=== PATIENT | male | born 1925 | race Caucasian/White ===

== ENCOUNTER 2017-03-17 11:16 | Emergency (ER) | payer MEDICARE, OTHER ==
[2017-03-17] MEDS ORDERED: Ondansetron HCl/PF 4 MG/2 ML Vial ONE (11:45)
[2017-03-17 11:52] LABS: #Basophils 0.1 thou/uL (0.0-0.2); #Eosinphils 0.2 thou/uL (0.0-0.7); #Lymphocytes 1.2 thou/uL (1.20-3.40); #Monocytes 0.7 thou/uL (0.11-0.59); #Neutrophils 8.4 thou/uL (1.40-6.50); %Basophils 0.7 % (0.0-1.0); %Eosinophils 1.4 % (0.0-10.0); %Lymphocytes 11.4 % (21.0-51.0); %Monocytes 6.6 % (0.0-10.0); %Neutrophils 79.9 % (42.0-75.0); Mean Corpuscular HGB CONC 33.6 g/dL (32.0-36.0); Mean Corpuscular Hemoglobin 31.3 pg (27.0-31.0); Mean Corpuscular Volume 93.3 fl (80.0-94.0); Mean Platelet Volume 6.6 fL (7.4-10.4); Platelet Count 194 thou/uL (130-400); RBC Distribution Width 12.4 % (11.5-14.5); Red Blood Cell (RBC) Count 3.84 mill/uL (4.70-6.10); White Blood Cell (WBC) Count 10.6 thou/uL (4.8-10.8)
[2017-03-17 12:06] LABS: Bilirubin Negative (Negative); Blood, Urine Trace (Negative); Clarity Slightly Cloudy (Clear); Glucose, Urine (Dipstick) 100 mg/dL (Negative); Leukocyte Large (Negative); Nitrite Positive (Negative); Protein, Urine (Dipstick) > or equal to 300 mg/dL (Neg-Trace); Urobilinogen 0.2 mg/dL (0.2-1.0); pH, Urine Greater/Equal 9.0 (5.0-9.0)
[2017-03-17 12:10] LABS: ALT (SGPT) 15 U/L (8-55); AST (SGOT) 24 U/L (5-34); Albumin 3.7 g/dL (3.4-4.8); Alkaline Phosphatase 74 U/L (40-150); Anion Gap 20 mmol/L (10-20); BUN (Urea Nitrogen) 50 mg/dL (8.4-25.7); Bilirubin, Total 0.6 mg/dL (0.2-1.2); CK (CPK) 197 U/L (30-200); Calc. Creatinine Clearance 0 mL/min (70-130); Calcium 8.9 mg/dL (7.8-10.44); Carbon Dioxide 18 mmol/L (23-31); Chloride 107 mmol/L (98-107); Estimated GFR-MDRD 16; Globulin 3.5 g/dL (2.4-3.5); Glucose 167 mg/dL (83-110); Lipase 14 U/L (8-78); Potassium 4.5 mmol/L (3.5-5.1); Protein, Total 7.2 g/dL (5.8-8.1); Sodium 140 mmol/L (136-145)
[2017-03-17 12:20] LABS: Bacteria/HPF 3+ HPF (None Seen); Crystals/HPF 2+ TRIPLE PHOS HPF (Negative); RBC/HPF 0-3 HPF (0-3); Squamous Epithelial 0-3 HPF (0-3)
[2017-03-17] MEDS ORDERED: Oxymetazoline HCl 0.05% ( 15 ML ) ONE (12:52)
[2017-03-17] MEDS ORDERED: Lidocaine Viscous Sol 2% 15 ml UD Cup ONE (12:52)
[2017-03-17] MEDS ORDERED: Benzocaine 20% Spray 60 ML CAN ONE (12:54)
--- NOTE | 2017-03-17 13:30 | CT ---
CT ABDOMEN AND PELVIS WITHOUT CONTRAST: 03/17/2017 COMPARISON: Prior study dated 01/20/2010 done at [facility]. TECHNIQUE: A spiral CT of the abdomen and pelvis was performed without IV contrast due to a low GFR. No oral or IV contrast was used. Axial slices were acquired and then coronal reconstructions were done. FINDINGS: The main finding on the study is a small bowel obstruction due to a right inguinal hernia. Small bow el dips into the inguinal canal and goes into the scrotum, resulting in an incarcerated hernia. The small bowel is dilated up to about 3 cm in width. No free air or free fluid is seen. There is no di lation of colon. The lung bases are clear. The liver, spleen, pancreas, adrenal glands, and kidneys show no acute fin dings within the limitations of a noncontrast study. A few tiny gallstones were suggested in the gal lbladder, without obvious gallbladder wall thickening. A large hiatal hernia is present. The aorta is densely calcified but shows no aneurysm. CT of the pelvis shows a suprapubic catheter enters from the left side and is appropriately located w ithin the decompressed urinary bladder. No free fluid or inflammatory changes are seen in the pelvis . Severe degenerative changes are present in the spine, as usual. IMPRESSION: 1. Small bowel obstruction due to an incarcerated right inguinal hernia. 2. Tiny gallstones. 3. Hiatal hernia (not a new finding). 4. Suprapubic catheter in appropriate position. Findings discussed with Dr. Knowles at 12:44 on 03/17/2017. CODE CR POS: HOME
--- NOTE | 2017-03-17 17:15 | RAD ---
PORTABLE CHEST: Date: 03-17-17 FINDINGS: An AP portable film at 1302 is compared with a 04-17-12 study. The left basilar density seen previously has resolved. The lungs are clear today. There are no effusi ons, infiltrates, or congestive changes. AICD remains in place. Mild cardiac enlargement is similar to before. IMPRESSION: No acute thoracic finding. POS: HOME
== END 2017-03-17 13:20 | disposition home or self-care (01) ==
LOC: BURERS 11:16
DX: K56.609 Unspecified intestinal obstruction, unspecified as to partial versus complete obstruction (principal); K40.30 Unilateral inguinal hernia, with obstruction, without gangrene, not specified as recurrent; E78.5 Hyperlipidemia, unspecified; E11.9 Type 2 diabetes mellitus without complications; I13.0 Hypertensive heart and chronic kidney disease with heart failure and stage 1 through stage 4 chronic kidney disease, or unspecified chronic kidney disease; N18.3 Chronic kidney disease, stage 3 (moderate); N40.0 Benign prostatic hyperplasia without lower urinary tract symptoms; I25.10 Atherosclerotic heart disease of native coronary artery without angina pectoris; Z79.899 Other long term (current) drug therapy
CPT/HCPCS: 36415; 71010; 74177; 80053; 81003; 81015; 82550; 83605; 83690; 85025; 87086; 96374; J2405